=== PATIENT | male | born 1950 | race Caucasian/White ===

== ENCOUNTER 2020-04-14 09:09 | Outpatient (REF) | payer MEDICARE, OTHER, SELFPAY ==
[2020-04-14 10:17] LABS: Estimated Average Glucose 114 mg/dL; Hemoglobin A1c % 5.6 %
[2020-04-14 10:36] LABS: Alanine Aminotransferase 18 U/L (0-40); Anion Gap 12 (12-20); Blood Urea Nitrogen 20 mg/dL (9-16); Carbon Dioxide 27 mmol/L (22-29); Chloride 108 mmol/L (96-108); Cholesterol 158 mg/dL; Estimated Glomerular Filt Rate > 60; Glucose Fasting 110 mg/dL (60-99); HDL Cholesterol 41 mg/dL; LDL Cholesterol Calculated 103 mg/dl; Potassium 4.4 mmol/L (3.3-5.1); Sodium 143 mmol/L (135-145); Triglycerides 71 mg/dL
== END 2020-04-14 09:10 | disposition home or self-care (01) ==
LOC: HO.10HDL 09:09
PROVIDERS: Visit Provider Family Medicine
DX: I10 Essential (primary) hypertension (principal); E11.9 Type 2 diabetes mellitus without complications; E78.00 Pure hypercholesterolemia, unspecified; Z79.899 Other long term (current) drug therapy
CPT/HCPCS: 36415; 80051; 80061; 82550; 82565; 82947; 83036; 84460; 84520

== ENCOUNTER 2020-10-18 09:11 | Outpatient (REF) | payer MEDICARE, OTHER, SELFPAY ==
[2020-10-18 11:19] LABS: Anion Gap 10 (12-20); Blood Urea Nitrogen 22 mg/dL (9-16); Carbon Dioxide 24 mmol/L (22-29); Chloride 110 mmol/L (96-108); Estimated Glomerular Filt Rate > 60; Glucose Fasting 115 mg/dL (60-99); Potassium 4.2 mmol/L (3.3-5.1); Sodium 140 mmol/L (135-145)
[2020-10-18 11:29] LABS: Estimated Average Glucose 111 mg/dL; Hemoglobin A1c % 5.5 %
== END 2020-10-18 09:12 | disposition home or self-care (01) ==
LOC: HO.10HDL 09:11
PROVIDERS: Visit Provider Family Medicine
DX: I10 Essential (primary) hypertension (principal); E11.9 Type 2 diabetes mellitus without complications
CPT/HCPCS: 36415; 80051; 82043; 82565; 82947; 83036; 84520

== ENCOUNTER 2021-06-12 07:56 | Outpatient (REF) | payer MEDICARE, OTHER, SELFPAY ==
--- NOTE | ~2021-06-12 | XR_ITS ---
EXAMINATION: XR CHEST CLINICAL INFORMATION: Weight loss, diabetes, hypertension COMPARISON: Chest CT 09/21/2019, chest radiograph 01/24/2012 TECHNIQUE: 2 views of the chest were obtained. FINDINGS: There may be trace atelectasis at the lateral aspect of the left lower lung zone. Otherwise there is no significant abnormality is noted involving the heart, lungs, mediastinum, bony thorax or soft tissues. XR/XR chest 2V IMPRESSION: Question minimal left basilar atelectasis, otherwise unremarkable radiographs of the chest.
[2021-06-12 08:20] LABS: MANUAL DIFF FLAG NO
[2021-06-12 08:47] LABS: Basophils Percent Auto 0.4 % (0-2); Eosinophils Absolute Auto 0.1 X10*3/uL (0.0-0.4); Eosinophils Percent Auto 2.3 % (0-4); Hematocrit 41.6 % (42.0-52.0); Hemoglobin 14.1 g/dl (14.0-18.0); Imm Gran Abs Auto 0.01 X10*3/uL (0.00-0.03); Imm Gran Pct Auto 0.2 % (0.0-0.4); Lymphocytes Absolute Auto 1.6 X10*3/uL (1.2-4.9); Lymphocytes Percent Auto 34.1 % (20-40); Mean Corpuscular HGB Conc 33.9 g/dl (31.0-36.0); Mean Corpuscular Hemoglobin 30.3 pg (27.0-33.0); Mean Corpuscular Volume 89.3 fL (80.0-98.0); Mean Platelet Volume 10.3 fL (9.4-12.4); Monocytes Absolute Auto 0.4 X10*3/uL (0.1-1.2); Monocytes Percent Auto 8.3 % (2-11); Neutrophils Absolute Auto 2.6 x10*3/uL (2.0-8.3); Neutrophils Percent Auto 54.7 % (45-73); Platelet Count 203 X10*3/uL (160-400); Red Blood Count 4.66 X10*6/uL (4.60-5.80); Red Cell Distribution Width 12.1 % (11.0-16.0); White Blood Count 4.8 X10*3/uL (4.8-10.8)
[2021-06-12 09:09] LABS: Estimated Average Glucose 117 mg/dL; Hemoglobin A1c % 5.7 %
[2021-06-12 09:18] LABS: Alanine Aminotransferase 20 U/L (0-40); Albumin Level 4.2 g/dL (3.5-5.0); Alkaline Phosphatase 54 U/L (39-117); Anion Gap 9 (12-20); Aspartate Amino Transferase 24 U/L (5-37); Bilirubin Total 0.4 mg/dL (0.0-1.0); Blood Urea Nitrogen 21 mg/dL (9-16); Calcium 9.6 mg/dL (8.4-10.2); Carbon Dioxide 30 mmol/L (22-29); Chloride 106 mmol/L (96-108); Estimated Glomerular Filt Rate > 60; Glucose Fasting 124 mg/dL (60-99); Potassium 4.7 mmol/L (3.3-5.1); Sodium 140 mmol/L (135-145); Total Protein 6.7 g/dL (6.5-8.0)
[2021-06-12 09:46] LABS: Erythrocyte Sedimentation Rate 5 MM/HR (0-15)
== END 2021-06-12 07:57 | disposition home or self-care (01) ==
LOC: HO.XRAY 07:56
PROVIDERS: PCP Family Medicine; Visit Provider Family Medicine
DX: E11.9 Type 2 diabetes mellitus without complications (principal); I10 Essential (primary) hypertension; R63.4 Abnormal weight loss
CPT/HCPCS: 36415; 71046; 80053; 83036; 85025; 85652

== ENCOUNTER 2021-07-21 07:34 | Outpatient (REF) | payer MEDICARE, OTHER, SELFPAY ==
[2021-07-21 08:28] LABS: Blood Urea Nitrogen 22 mg/dL (9-16); Estimated Glomerular Filt Rate > 60
== END 2021-07-21 07:35 | disposition home or self-care (01) ==
LOC: HO.LAB 07:34
PROVIDERS: PCP Family Medicine; Visit Provider Family Medicine
DX: Z01.818 Encounter for other preprocedural examination (principal); I10 Essential (primary) hypertension
CPT/HCPCS: 36415; 82565; 84520

== ENCOUNTER 2021-11-22 13:04 | Outpatient (REF) | payer MEDICARE, SELFPAY ==
--- NOTE | 2021-11-22 09:00 | EMG_ITS ---
Right tibial and peroneal motor studies were performed. Right superficial peroneal and sural sensory studies were performed. Tibial H-reflex was obtained and needle examination was done. 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 MD JAYSHREE Velazquez/JERAMIE / [id number]
== END 2021-11-22 13:05 | disposition home or self-care (01) ==
LOC: HO.NEURO 13:04
PROVIDERS: Visit Provider Family Medicine
DX: M21.371 Foot drop, right foot (principal)
CPT/HCPCS: 95886; 95909

== ENCOUNTER 2022-02-19 07:58 | Outpatient (REF) | payer MEDICARE, OTHER, SELFPAY ==
[2022-02-19 08:44] LABS: Estimated Average Glucose 114 mg/dL; Hemoglobin A1c % 5.6 %
[2022-02-19 09:00] LABS: Creatinine Urine 202.51 mg/dL; Microalbum/Creatinine Ratio Ur 3.9 ug/mg cr
[2022-02-19 09:03] LABS: Alanine Aminotransferase 15 U/L (0-40); Albumin Level 4.3 g/dL (3.5-5.0); Alkaline Phosphatase 49 U/L (39-117); Anion Gap 13 (12-20); Aspartate Amino Transferase 20 U/L (5-37); Bilirubin Total 0.4 mg/dL (0.0-1.0); Blood Urea Nitrogen 20 mg/dL (9-16); Calcium 9.3 mg/dL (8.4-10.2); Carbon Dioxide 26 mmol/L (22-29); Chloride 108 mmol/L (96-108); Estimated Glomerular Filt Rate > 60; Glucose Fasting 111 mg/dL (60-99); Potassium 4.4 mmol/L (3.3-5.1); Sodium 143 mmol/L (135-145); Total Protein 6.8 g/dL (6.5-8.0)
== END 2022-02-19 07:59 | disposition home or self-care (01) ==
LOC: HO.LAB 07:58
PROVIDERS: PCP Family Medicine; Visit Provider Family Medicine
DX: I10 Essential (primary) hypertension (principal); E11.9 Type 2 diabetes mellitus without complications; E78.00 Pure hypercholesterolemia, unspecified; Z79.899 Other long term (current) drug therapy
CPT/HCPCS: 36415; 80053; 82043; 83036

== ENCOUNTER 2022-08-16 06:44 | Outpatient (REF) | payer MEDICARE, OTHER, SELFPAY ==
[2022-08-16 07:42] LABS: Estimated Average Glucose 114 mg/dL; Hemoglobin A1c % 5.6 %
[2022-08-16 08:00] LABS: Anion Gap 11 (12-20); Blood Urea Nitrogen 26 mg/dL (9-16); Carbon Dioxide 27 mmol/L (22-29); Chloride 109 mmol/L (96-108); Cholesterol 169 mg/dL; Estimated Glomerular Filt Rate > 60; Glucose Fasting 123 mg/dL (60-99); HDL Cholesterol 59 mg/dL; LDL Cholesterol Calculated 101 mg/dl; Potassium 4.2 mmol/L (3.3-5.1); Sodium 143 mmol/L (135-145); Triglycerides 49 mg/dL
== END 2022-08-16 06:45 | disposition home or self-care (01) ==
LOC: HO.LAB 06:44
PROVIDERS: PCP Family Medicine; Visit Provider Family Medicine
DX: I10 Essential (primary) hypertension (principal); E78.00 Pure hypercholesterolemia, unspecified; R73.9 Hyperglycemia, unspecified
CPT/HCPCS: 36415; 80051; 80061; 82565; 82947; 83036; 84520

== ENCOUNTER 2022-09-19 07:19 | Outpatient (REF) | payer MEDICARE, SELFPAY ==
--- NOTE | ~2022-09-19 | CT_ITS ---
EXAMINATION: CT CHEST WITHOUT CONTRAST CLINICAL INFORMATION: Pulmonary nodule follow-up COMPARISON: Previous chest CT scans most recent July 2021 back to January 2016 TECHNIQUE: Multidetector volumetric CT imaging of the chest was done. Axial MIP volume rendering provided. Sagittal and coronal reformatted images were obtained. This CT examination was performed using dose optimization techniques as appropriate, variously including the following: *Automated exposure control *Adjustment of mA and/or kV according to patient size (this includes techniques or standardized protocols for targeted exams where dose is matched to indication/reason for exam; i.e. extremities or head) *Use of iterative reconstruction technique DLP: 284 mGy-cm FINDINGS: LUNGS: Biapical pleural and parenchymal scarring. Able 5 mm calcified right middle lobe nodule axial image 333 series 5. Stable 2 mm calcified left lower lobe nodule axial image 308 series 5. Stable scarring or chronic subsegmental atelectasis in the left lower lobe axial image 494 series 5. No new pulmonary nodule. MEDIASTINUM: Upper normal heart size. No pericardial effusion. Normal caliber thoracic aorta. Calcified mediastinal and right hilar lymph nodes similar to previous exams. Small subcentimeter left thyroid nodule similar to prior exams. No imaging follow-up recommended. CORONARY ARTERY CALCIFICATION: Moderate PLEURA: There is no pleural effusion. No pleural mass or thickening. Left posterior small diaphragmatic hernia containing fat. AXILLA: No lymphadenopathy. UPPER ABDOMEN: Unremarkable. OSSEOUS STRUCTURES: Degenerative changes of the spine. Stable small sclerotic densities in T1 and L1. CT/CT chest wo IV con IMPRESSION: Stable chest CT exam. Evidence of old granulomatous disease. Pulmonary nodules are unchanged going back to oldest available 2016 exam. According to Fleischner criteria, no chest CT follow-up recommended. Fleischner guidelines were followed.
== END 2022-09-19 07:20 | disposition home or self-care (01) ==
LOC: HO.CT 07:19
PROVIDERS: Visit Provider Family Medicine
DX: R06.02 Shortness of breath (principal); R91.1 Solitary pulmonary nodule
CPT/HCPCS: 71250

== ENCOUNTER 2023-02-07 08:27 | Outpatient (REF) | payer MEDICARE, OTHER, SELFPAY ==
[2023-02-07 08:59] LABS: Estimated Average Glucose 120 mg/dL; Hemoglobin A1c % 5.8 % (<6.0)
[2023-02-07 09:30] LABS: Alanine Aminotransferase 13 U/L (0-40); Anion Gap 11 (12-20); Aspartate Amino Transferase 15 U/L (5-37); Blood Urea Nitrogen 19 mg/dL (9-16); Carbon Dioxide 28 mmol/L (22-29); Chloride 108 mmol/L (96-108); Estimated Glomerular Filt Rate > 60; Glucose Fasting 115 mg/dL (60-99); Potassium 3.8 mmol/L (3.3-5.1); Sodium 143 mmol/L (135-145)
== END 2023-02-07 08:28 | disposition home or self-care (01) ==
LOC: HO.LAB 08:27
PROVIDERS: PCP Family Medicine; Visit Provider Family Medicine
DX: I10 Essential (primary) hypertension (principal); E11.9 Type 2 diabetes mellitus without complications; E78.00 Pure hypercholesterolemia, unspecified; Z79.899 Other long term (current) drug therapy
CPT/HCPCS: 36415; 80051; 82565; 82947; 83036; 84450; 84460; 84520

== ENCOUNTER 2023-07-18 07:28 | Outpatient (REF) | payer MEDICARE, OTHER, SELFPAY ==
[2023-07-18 08:20] LABS: Estimated Average Glucose 123 mg/dL; Hemoglobin A1c % 5.9 % (<6.0)
[2023-07-18 08:27] LABS: Alanine Aminotransferase 16 U/L (0-40); Anion Gap 12 (12-20); Aspartate Amino Transferase 19 U/L (5-37); Blood Urea Nitrogen 20 mg/dL (9-16); Carbon Dioxide 25 mmol/L (22-29); Chloride 111 mmol/L (96-108); Estimated Glomerular Filt Rate > 60; Glucose Fasting 115 mg/dL (60-99); Potassium 4.3 mmol/L (3.3-5.1); Sodium 144 mmol/L (135-145)
== END 2023-07-18 07:29 | disposition home or self-care (01) ==
LOC: HO.LAB 07:28
PROVIDERS: PCP Family Medicine; Visit Provider Family Medicine
DX: I10 Essential (primary) hypertension (principal); E11.9 Type 2 diabetes mellitus without complications; E78.00 Pure hypercholesterolemia, unspecified
CPT/HCPCS: 36415; 80051; 82550; 82565; 82947; 83036; 84450; 84460; 84520

== ENCOUNTER 2024-01-13 08:02 | Outpatient (REF) | payer MEDICARE, OTHER, SELFPAY ==
[2024-01-13 09:06] LABS: Estimated Average Glucose 114 mg/dL; Hemoglobin A1C 127.0781 umol/L; Hemoglobin A1c % 5.6 % (<6.0); Total Hemoglobin (HGBA1C) 3384.3216 umol/L
[2024-01-13 09:48] LABS: Alanine Aminotransferase 19 U/L (0-40); Anion Gap 8 (12-20); Aspartate Amino Transferase 21 U/L (5-37); Blood Urea Nitrogen 15 mg/dL (9-16); Carbon Dioxide 28 mmol/L (22-29); Chloride 107 mmol/L (96-108); Estimated Glomerular Filt Rate > 60; Glucose Fasting 116 mg/dL (60-99); Potassium 4.1 mmol/L (3.3-5.1); Sodium 139 mmol/L (135-145)
== END 2024-01-13 08:03 | disposition home or self-care (01) ==
LOC: HO.LAB 08:02
PROVIDERS: PCP Family Medicine; Visit Provider Family Medicine
DX: I10 Essential (primary) hypertension (principal); E78.00 Pure hypercholesterolemia, unspecified; Z79.899 Other long term (current) drug therapy; R73.09 Other abnormal glucose
CPT/HCPCS: 36415; 80051; 82550; 82565; 82947; 83036; 84450; 84460; 84520

== ENCOUNTER 2024-06-10 07:25 | Outpatient (REF) | payer MEDICARE, OTHER, SELFPAY ==
[2024-06-10 08:38] LABS: Alanine Aminotransferase 34 U/L (0-40); Anion Gap 13 (12-20); Aspartate Amino Transferase 50 U/L (5-37); Blood Urea Nitrogen 23 mg/dL (9-16); Carbon Dioxide 27 mmol/L (22-29); Chloride 107 mmol/L (96-108); Estimated Glomerular Filt Rate > 60; Potassium 4.5 mmol/L (3.3-5.1); Sodium 142 mmol/L (135-145)
== END 2024-06-10 07:26 | disposition home or self-care (01) ==
LOC: HO.LAB 07:25
PROVIDERS: PCP Family Medicine; Visit Provider Family Medicine
DX: I10 Essential (primary) hypertension (principal); E78.00 Pure hypercholesterolemia, unspecified
CPT/HCPCS: 36415; 80051; 82550; 82565; 84450; 84460; 84520

== ENCOUNTER 2024-06-21 07:28 | Outpatient (REF) | payer MEDICARE, OTHER, SELFPAY ==
--- OUTSIDE RECORDS SUMMARY | 2024-06-21 07:33 | XMS_ITS | Patient Health Record ---
Author Organization [facility] Dennis Bolañosley Address [address] [facility] [place] [address] Care Team Providers Care Manager Administrative Services Name Role Phone Walter GERMAN, Madan Primary Care Provider Sari Man Unavailable [phone] Allergies No Known Allergies Reason For Referral No Information Medications Medication SIG (Take, Route, Frequency, Duration) Notes Start Date End Date Status Lisinopril 5 MG 1 tablet Orally Once a day Active Aspirin Adult Low Dose 81 MG Orally Active Crestor 10 MG Orally Active Physical Therapy . . . 2-3x/week for 3- 4 weeks 08/17/2021 Active Social History Tobacco Use: Social History Observation Description Date Details (start date - stop date) Current Smoker NA - NA Tobacco Use/Smoking Question Answer Notes Are you a: current smoker Tobacco use other than smoking: Question Answer Notes Are you an other tobacco user? No Problems No Known Problems Plan Of Treatment No Information Insurance Providers Payer Name Payer Address Payer Phone Subscriber Number Group Number Insured Name Patient Relationship to Insured Coverage Start Date Coverage End Date Medicare National Govt Svcs Inc [address] [place] [address] [id number] Ifeanyi Kovacs Self - patient is the insured [employer] health & benefit plan [address] [place] [address] [place] [address] [phone] [id number] Ifeanyi Kovacs Self - patient is the insured Medical (General) History Medical History History ICD Code Broken bones Joint implants/screws Surgical History Surgery Date(Month/Year) ankle surgery 1994 cyst removal left eye
== END 2024-06-21 07:29 | disposition home or self-care (01) ==
LOC: HO.LAB 07:28
PROVIDERS: PCP Family Medicine; Visit Provider Family Medicine
DX: E78.00 Pure hypercholesterolemia, unspecified (principal)
CPT/HCPCS: 36415; 82550

== ENCOUNTER 2024-07-16 10:06 | Outpatient (REF) | payer MEDICARE, OTHER, SELFPAY ==
--- OUTSIDE RECORDS SUMMARY | 2024-07-16 10:40 | XMS_ITS | Clinical Summary ---
Author Organization [facility] Address [address] [place] [address] Care Team Providers Care Supervisor Hot Dip Plating Name Role Phone Unavailable Primary Care Provider Unavailabl e Social History Tobacco Use Types Packs/Day Years Used Date Smoking Tobacco: Never Assessed Sex and Gender Information Value Date Recorded Sex Assigned at Not on file Legal Sex Male 3:54 AM EST Gender Identity Not on file Sexual Orientation Not on file Plan of Treatment Not on file
[2024-07-16 14:10] LABS: Appearance Urine Clear; Color Urine Yellow; Glucose Urine UA Negative (Negative); Leukocyte Esterase Urine Trace (Negative); Nitrite Urine Negative (Negative); UMIC TRIGGER UACC YES; Urine Blood Negative (Negative); Urine Ketones Negative (Negative); Urine Protein Negative (Neg-Trace)
[2024-07-16 14:15] LABS: Bacteria Urine None Seen (None Seen); Hyaline Casts Urine 0-2 /LPF (0-2); RBC Urine 0-2 /HPF (0-2); Squamous Epithelial Cell Urine 0-2 /HPF (0-2); UACC Culture Trigger YES
== END 2024-07-16 10:07 | disposition home or self-care (01) ==
LOC: HO.10HDLNP 10:06
PROVIDERS: Visit Provider Family Medicine
DX: R30.0 Dysuria (principal)
CPT/HCPCS: 81001; 87086

== ENCOUNTER 2024-11-10 08:48 | Outpatient (AMB) | payer MEDICARE, OTHER, SELFPAY ==
--- NOTE | 2024-11-10 08:27 | MHC.PC.OV ---
Vital Signs 11/10/24 08:52 Height 5 ft 11 in Weight 208 lb BMI 29.0 BP 130/80 Blood Pressure Location Rt brachial Position Sitting Pulse 71 Pulse Source Pulse Oximeter Temp 97.6 F Temp Source Temporal Artery Scan Pulse Oximetry (%) 98 Oxygen Delivery Method Room Air Intake Visit Reasons: 4 MO F/UP - ZOE PT Reactor Service Operator Required: No Accompanied by: Self / Same As Patient Allergies No Known Allergies (No Known Allergies*) Allergy (Verified 11/10/24 08:28) Tobacco use date assessed: 11/10/24 Fall risk assessment: No Falls in past year Last assessed Fall Risk: 11/10/24 Dental Screening Dental Screen Date: 11/10/24 Did you have a dental visit in the last 12 months?: Yes Did you have a dental problem in the last 6 months where you did not have access to dental care?: No HPI HPI Comments History of Present Illness Details The patient is a 74-year-old male presenting with knee pain. He describes the onset of pain approximately two months ago and expresses concerns about arthritis. The patient notes a previous history of a foot graft from years ago. He also reports periodic numbness in the lower leg, which he understands may be due to nerve compression in the back. Knee pain intensifies upon kneeling and is sometimes associated with a sensation of the knee giving way. However, the patient denies any swelling, locking of the knee, or constant pain. He has reduced his walking activities from an hour per day due to discomfort, but remains capable of walking. The pain alleviates upon rest, and he does not report any significant improvement with past interventions. There is a history of steroid injections in the arm for a different issue, which resolved successfully. Medical History: - Essential Hypertension - Hyperlipidemia Surgical History: - Four screws placed in the left ankle due to a baseball injury approximately 20 years ago. Family History: - Father from stomach cancer. - [id number] recently at age 90. Social: - Tobacco use: Approximately 25 years of smoking, now reduced to a pack a week. - Alcohol use: Past use ceased due to headaches after consumption. - Exercises including walking, with reduced activity due to knee pain. [facility] Medical History (Updated 11/10/24 @ 09:29 by Alfonso Skaggs MD) Tobacco use disorder Knee pain Hyperlipidemia Hypertension Family History (Updated 11/10/24 @ 08:57 by Kati Suazo MA) Mother No problems noted. Father No problems noted. Social History Housing: House Patient Tobacco Use Status: Current everyday Tobacco user e-Cigarette/Vaping Use: Currently Using service: No Current occupational status: retired Cognitive needs: No Hearing needs: No Vision needs: Yes (rx glasses) Questionnaire PHQ-9 Over the last 2 weeks, how often have you been bothered by any of the following problems? 1. Little interest or pleasure in doing things: not at all 2. Feeling down, depressed, or hopeless: not at all 3. Trouble falling or staying asleep, or sleeping too much: not at all 4. Feeling tired or having little energy: not at all 5. Poor appetite or overeating: not at all 6. Feeling bad about yourself - or that you are a failure or have let yourself or your family down: not at all 7. Trouble concentrating on things, such as reading the newspaper or watching television: not at all 8. Moving or speaking so slowly that other people could have noticed. Or the opposite - being so fidgety or restless that you have been moving around a lot more than usual: not at all 9. Thoughts that you would be better off or of hurting yourself in some way: not at all Total score: 0 Depression Screening Interpretation: Negative Depression Screening Done: Yes 57941 - PHQ-9 Billing: Yes Source: Developed by Drs. Chon Lozano, Kaitlin Dukes, Zac Huang and colleagues, with an educational freddy from [employer]. Thrive Questionnaire Date Thrive assessed: 11/10/24 I am a: Patient What is your living situation today?: I have a steady place to live Within the past 12 months, did the food you bought not last and you didn't have the money to get more?: Never true Within the past 12 months, did you worry whether your food would run out before you got money to buy more?: Never true Do you have trouble paying for medicines?: No Do you have trouble getting transportation to medical appointments?: No Do you have trouble paying your heating and electricity bill?: No Do you have trouble taking care of your child, family member or friend?: No Do you have trouble with day-to-day activities such as bathing, preparing meals, shopping, managing finances, etc.?: No Are you currently unemployed and looking for a job?: No Are you interested in more education?: No THRIVE Score: 0 AUDIT C Alcohol Use Questionnaire (AUDIT-C) 1. How often do you have a drink containing alcohol?: Never 3. How often do you have six or more drinks on one occasion?: Never Total Score: 0 Score Reviewed/Action Taken: Yes CHADD-7 AMB Questionnaire CHADD-7 Date CHADD - 7 assessed: 11/10/24 Feeling nervous, anxious, or on edge: 0 = Not at all Not being able to stop or control worryin = Not at all Worrying too much about different things: 0 = Not at all Trouble relaxin = Not at all Being so restless that it is hard to sit still: 0 = Not at all Becoming easily annoyed or irritable: 0 = Not at all Feeling afraid as if something awful might happen: 0 = Not at all Total CHADD-7 score (0-4 normal; 5-9 mild; 10-14 moderate; 15-21 severe): 0 Source: Developed by Drs. Chon Lozano, Kaitlin Dukes, Zac Huang and colleagues, with an educational freddy from [employer]. CHADD-7 Assessment Billing CHADD-7 Assessment Tool: CHADD-7 Assessment 72751 Review of Systems Const Details: - Musculoskeletal: Reports knee pain that worsens with kneeling; denies swelling or locking - Neurological: Reports occasional numbness in the lower leg - Cardiovascular: Denies chest pain, fluttering - Gastrointestinal: Denies nausea, vomiting, diarrhea, constipation - Genitourinary: Denies any issues with urination - Respiratory: Denies shortness of breath - Psychiatric: Denies anxiety or depression All systems reviewed & are unremarkable except as reviewed in HPI and above Physical exam (Primary Care) Vital Signs: Last Vital Signs Temp 97.6 F 11/10/24 08:52 Pulse 71 11/10/24 08:52 BP 130/80 11/10/24 08:52 Pulse Ox 98 11/10/24 08:52 Oxygen Delivery Method Room Air 11/10/24 08:52 BMI result Body Mass Index 29.0 Tobacco/Smoking Status: Tobacco use Status Tobacco use date assessed 11/10/24 11/10/24 08:29 Patient Tobacco Use Status Current everyday Tobacco 11/10/24 08:57 e-Cigarette/Vaping Use Currently Using 11/10/24 08:57 PHQ-9: PHQ-9 Score PHQ-9: Total score 0 11/10/24 09:05 Depression Screening Interpretation: Negative Thrive Assessment: Date of Thrive Assessment Date Thrive assessed 11/10/24 11/10/24 08:29 Const Other: General: +Alert and oriented, Well nourished, No acute distress. Eye: Pupils are equal, round and reactive to light, Intact accommodation, Extraocular movements are intact, Normal conjunctiva, Vision unchanged. HENT: Normocephalic, Atraumatic, Tympanic membranes are clear, Normal hearing, Oral mucosa is moist, No pharyngeal erythema, Ear canals patent. Respiratory: Lungs CTA bilaterally, No wheeze, Respirations are non-labored. Cardiovascular: Regular rate, Regular rhythm, S1 auscultated, S2 auscultated, No murmur, Good pulses equal in all extremities, Normal peripheral perfusion, No edema. Gastrointestinal: Soft, Non-tender, Non-distended, Normal bowel sounds, No organomegaly. Musculoskeletal: Normal range of motion, Normal strength, No tenderness, No swelling, No deformity, Normal gait. Reports occasional numbness in the lower leg, knee pain when kneeling, and occasional giving way of the knee. Integumentary: Warm, Dry, [place], Intact. Neurologic: Alert, Oriented, Normal sensory, Normal motor function, No focal defects, Cranial Nerves II-XII are grossly intact, Normal deep tendon reflexes. Reports occasional hand tremors when tired. Psychiatric: Cooperative, Appropriate mood & affect, Normal judgment. No anxiety or depression reported. Coding Level of Care Code New Pt Level 4 (97177) Complex EM visit Add On G2211 Diagnoses Acute pain of right knee M25.561 Chronicity: acute Laterality: right Primary hypertension I10 Hypertension type: primary hypertension Other hyperlipidemia E78.49 Hyperlipidemia type: other hyperlipidemia Tobacco use disorder F17.200 Additional Codes CHADD-7 Assessment Billing - CHADD-7 Assessment Tool: CHADD-7 Assessment 15318 ([id number]) PHQ-9 - 18023 - PHQ-9 Billing: Yes ([id number]) Assessment & Plan Assessment & Plan (1) Knee pain: Comment: - Plan includes obtaining an X-ray to assess for potential arthritis. (Reports having pain in the knee and above and below, with occasional numbness) - Suggested maintaining activity within comfortability to manage arthritis. - Consideration of physical therapy or steroid injections in the knee if needed. - Continue low-impact exercise for arthritis management. Code(s): M25.569 - Pain in unspecified knee Category: Medical Qualifiers: Chronicity: acute Laterality: right Qualified Code(s): M25.561 - Pain in right knee (2) Hypertension: Comment: - Continued monitoring and management with current medical regimen. (Lisinopril 10) - Emphasized the importance of medication adherence and regular blood pressure checks. Code(s): I10 - Essential (primary) hypertension Category: Medical Qualifiers: Hypertension type: primary hypertension Qualified Code(s): I10 - Essential (primary) hypertension (3) Hyperlipidemia: Comment: - Remain on current management and monitor lipid levels regularly. - Discussed potential lifestyle modifications, including diet and activity levels. Code(s): E78.5 - Hyperlipidemia, unspecified Category: Medical Qualifiers: Hyperlipidemia type: other hyperlipidemia Qualified Code(s): E78.49 - Other hyperlipidemia (4) Tobacco use disorder: Comment: - Recommended referral for lung cancer screening (CT scan annually). - Encouraged cessation efforts due to longstanding history of use. Code(s): F17.200 - Nicotine dependence, unspecified, uncomplicated Category: Medical Plan: Health maintenance: - Lung cancer screening (annual CT) due to history of smoking. - Colonoscopy recommended as the last was approximately five to six years ago. Patient was informed and verbally consented to the use of an ambient scribe for clinic note documentation during this visit. Plan During the consultation, I discussed the likelihood of knee arthritis with the patient, supported by the symptomatology and age-related risk factors. I outlined the management options for arthritis, emphasizing activity, potential physical therapy, and the possible need for steroid injections. We agreed to pursue an X-ray for diagnostic assessment. I also covered hypertension and hyperlipidemia management, ensuring the patient understood the importance of medication adherence and lifestyle modifications. Additionally, I addressed the need for lung cancer screening due to smoking history and scheduled necessary preventive screenings like colonoscopy. Follow-up was generally agreed upon every six months or as required. Orders: Orders Lipid Panel Today Z76.89 - Persons encountering health services in other specified circumstances Complete Blood Count Auto Diff Today Z76.89 - Persons encountering health services in other specified circumstances Comprehensive Met. Panel Today Z76.89 - Persons encountering health services in other specified circumstances Hemoglobin A1c Today Z76.89 - Persons encountering health services in other specified circumstances TSH reflex Free T4 Today Z76.89 - Persons encountering health services in other specified circumstances Vitamin D 25-OH Total Today Z76.89 - Persons encountering health services in other specified circumstances XR knee RT 3V Today M25.561 - Pain in right knee Referrals Lung Cancer Screening Referral F17.200 - Nicotine dependence, unspecified, uncomplicated Open Access Screening Colonoscopy Referral Z12.11 - Encounter for screening for malignant neoplasm of colon Patient Instructions: - Get an X-ray of your knee to check for arthritis. - Keep moving and do low-impact exercises to help with arthritis. - Take your blood pressure and cholesterol medicines as prescribed. - Start screening for lung cancer since you have smoked. - Plan to have a colonoscopy done soon. - Stay active within comfort, but avoid activities that make knee pain worse. - Watch your diet and increase exercise for your blood pressure and cholesterol. - Attend your follow-up appointment in six months.
[2024-11-10 08:52] VITALS: BP 130/80; PULSE 71; TEMP 36.4; O2SAT 98; BMI 29.0
--- OUTSIDE RECORDS SUMMARY | 2024-11-10 10:03 | XMS_ITS | Clinical Summary ---
Author Organization [facility] Address [address] [place] [address] Care Team Providers Care Hot Roll Laminator Name Role Phone Unavailable Primary Care Provider [...]
--- OUTSIDE RECORDS SUMMARY | 2024-11-10 10:03 | XMS_ITS | Patient Health Record ---
Author Organization [facility] Dennis [place]cd[place] Address [address] [facility] [place] [address] Care Team Providers Care Rn Social Work Name Role Phone Walter GERMAN, Madan Primary Care Provider Sari Man Unavailable [phone] Allergies No Known Allergies Reason For Referral No Information Medications Medication SIG (Take, Route, Frequency, Duration) Notes Start Date End Date Status Lisinopril 5 MG 1 tablet Orally Once a day Active Aspirin Adult Low Dose 81 MG Orally Active Crestor 10 MG Orally Active Physical Therapy . . . 2-3x/week; Durat ion: 3-4 weeks 08/17/2021 Active Social History Tobacco Use: [...] Medicare National Govt Svcs Inc [address] [place] [address] [id number] Ifeanyi Kovacs Self - patient is the insured [employer] health & benefit plan [address] [place] [address] [place] [address] [phone] [id number] Ifeanyi Kovacs Self - patient is the insured Medical (General) History Medical History History ICD Code Broken bones Joint implants/screws Surgical History Surgery Date(Month/Year) ankle surgery 1994 cyst removal left eye
--- OUTSIDE RECORDS SUMMARY | 2024-11-10 10:03 | XMS_ITS | Patient Health Record ---
Author Organization [facility] Address [address] [place] [address] Care Team Providers Care Telecommunications Network Planner Name Role Phone Walter (RETIRED) Madan GERMAN Primary Care Provider Unavailable Chon Sexton Unavailable [phone] Reason For Referral No Information Medications Medication SIG (Take, Route, Frequency, Duration) Notes Start Date End Date Status Lisinopril 5 MG 1 tablet Orally Once a day Active Crestor 10 MG 1 tablet Orally Once a day Active Aspirin Adult Low Dose 81 MG 1 tablet Orally Once a day A ctive Problems Problem Type SNOMED Code ICD Code Onset Dates Problem Status W/U Status Risk Notes Problem [id number] Encounter for screening for malignant neoplasm of colon (Z12.11) Active confirmed Problem 18721329 Preprocedural examination (Z01.818) Active confirmed Problem 136935052 Aspirin long-ter m use (Z79.82) Active confirmed Plan Of Treatment Future Test Test Name Order Date COLONOSCOPY 12/08/2014 Insurance Providers Payer Name Payer Address Payer Phone Subscriber Number Group Number Insured Name Patient Relationship to Insured Coverage Start Date Coverage End Date [employer] [address] [facility] [place] [address] [id number] JEFF COLE Self - patient is the insured Medical (General) History Medical History History ICD Code HTN Hyperlipidemia Denies AK,DM,CVA,Lung disease,renal dise ase Surgical History Surgery Date(Month/Year) left ankle has two screws 20-25 years ag o
== END 2024-11-10 09:11 | disposition home or self-care (01) ==
LOC: HO.HMCHD 08:49
PROVIDERS: PCP Student in an Organized Health Care Education/Training Program; Visit Provider Student in an Organized Health Care Education/Training Program
DX: M25.561 Pain in right knee (principal); I10 Essential (primary) hypertension; E78.49 Other hyperlipidemia; F17.200 Nicotine dependence, unspecified, uncomplicated

== ENCOUNTER → 2024-11-10 08:48 | Outpatient (BNVA) | payer MEDICARE, OTHER, SELFPAY | PROVIDERS: PCP Family Medicine; Visit Provider Student in an Organized Health Care Education/Training Program | DX: M25.561 Pain in right knee (principal); I10 Essential (primary) hypertension; E78.49 Other hyperlipidemia; F17.200 Nicotine dependence, unspecified, uncomplicated; Z13.31 Encounter for screening for depression; Z13.39 Encounter for screening examination for other mental health and behavioral disorders | CPT/HCPCS: 96127; 99202 ==

== ENCOUNTER 2024-11-12 07:55 | Outpatient (REF) | payer MEDICARE, OTHER, SELFPAY ==
--- NOTE | ~2024-11-12 | XR_ITS ---
EXAMINATION: XR KNEE 3 VIEWS RIGHT HISTORY: M25.561 - Pain in right knee COMPARISON: There are no prior studies available for comparison. FINDINGS: Three views of the right knee are submitted. Osseous mineralization is normal. There is no fracture or dislocation. There is minimal patellar spurring. The soft tissues are unremarkable. There is no joint effusion. XR/XR knee RT 3V IMPRESSION: Minimal patellar spurring. Electronically signed by: Chon Mendoza MD 11/12/2024 08:52 AM EDT
--- OUTSIDE RECORDS SUMMARY | 2024-11-12 07:59 | XMS_ITS | Patient Health Record ---
Author Organization [facility] Dennis [place] Address [address] [facility] [place] [address] Care Team Providers Care Patient Account Analyst Name Role Phone Walter GERMAN, Madan Primary Care Provider Sari Man Unavailable [phone] Allergies No Known Allergies Reason For Referral [...] Medicare National Govt Svcs Inc [address] [place] [address] [id number] Ifeanyi Kovacs Self - patient is the insured [employer] health & benefit plan [address] [place] [address] [place] [address] [phone] [id number] Ifeanyi Kovacs Self - patient is the insured Medical (General) History Medical History History ICD Code Broken bones Joint implants/screws Surgical History Surgery Date(Month/Year) ankle surgery 1994 cyst removal left eye
--- OUTSIDE RECORDS SUMMARY | 2024-11-12 07:59 | XMS_ITS | Clinical Summary ---
Author Organization [facility] Address [address] [place] [address] Care Team Providers Care Newsroom Intern Name Role Phone Unavailable Primary Care Provider [...]
--- OUTSIDE RECORDS SUMMARY | 2024-11-12 07:59 | XMS_ITS | Patient Health Record ---
Author Organization [facility] Address [address] [place] [address] Care Team Providers Care Grip Wrapper Name Role Phone Walter (RETIRED) Madan GERMAN Primary Care Provider Unavailable Chon Sexton Unavailable [phone] Reason For Referral No Information Medications Medication [...] Problem Status W/U Status Risk Notes Problem [id number] Encounter for screening for malignant neoplasm of colon (Z12.11) Active confirmed Problem 21678846 Preprocedural examination (Z01.818) Active confirmed Problem 614361989 Aspirin long-ter m use (Z79.82) Active confirmed Plan Of Treatment Future Test Test Name Order Date COLONOSCOPY 12/08/2014 Insurance Providers Payer Name Payer Address Payer Phone Subscriber Number Group Number Insured Name Patient Relationship to Insured Coverage Start Date Coverage End Date [employer] [address] [place] [place] [address] [id number] JEFF COLE Self - patient is the insured Medical (General) History Medical History History ICD Code HTN Hyperlipidemia Denies [place],DM,CVA,Lung disease,renal dise ase Surgical History Surgery Date(Month/Year) left ankle has two screws 20-25 years ag o
[2024-11-12 08:18] LABS: MANUAL DIFF FLAG NO
[2024-11-12 09:56] LABS: Hematocrit 41.5 % (42.0-52.0); Hemoglobin 14.9 g/dl (14.0-18.0); Imm Gran Abs Auto 0.02 X10*3/uL (0.00-0.03); Imm Gran Pct Auto 0.3 % (0.0-0.4); Lymphocytes Absolute Auto 2.0 X10*3/uL (1.2-4.9); Mean Corpuscular HGB Conc 35.9 g/dl (31.0-36.0); Mean Corpuscular Hemoglobin 30.8 pg (27.0-33.0); Mean Corpuscular Volume 85.7 fL (80.0-98.0); NRBC Abs Auto 0.000 X10*3/uL (0.0-0.012); NRBC Pct Auto 0.0 /100WBC (0.0-0.2); Platelet Count 191 X10*3/uL (160-400); Red Blood Count 4.84 X10*6/uL (4.60-5.80); White Blood Count 6.4 X10*3/uL (4.8-10.8)
[2024-11-12 10:07] LABS: Hemoglobin A1C 158.6705 umol/L; Total Hemoglobin (HGBA1C) 3786.6804 umol/L
[2024-11-12 10:29] LABS: Alanine Aminotransferase 34 U/L (0-40); Albumin Level 4.6 g/dL (3.5-5.0); Alkaline Phosphatase 60 U/L (39-117); Anion Gap 10 (12-20); Aspartate Amino Transferase 23 U/L (5-37); Blood Urea Nitrogen 19 mg/dL (9-16); Calcium 9.3 mg/dL (8.4-10.2); Carbon Dioxide 29 mmol/L (22-29); Chloride 109 mmol/L (96-108); Cholesterol 190 mg/dL (<200); Estimated Glomerular Filt Rate > 60; HDL Cholesterol 40 mg/dL (>40); Potassium 4.4 mmol/L (3.3-5.1); Sodium 144 mmol/L (135-145); Total Protein 6.9 g/dL (6.5-8.0); Triglycerides 139 mg/dL (<150)
== END 2024-11-12 07:56 | disposition home or self-care (01) ==
LOC: HO.LAB 07:55
PROVIDERS: PCP Student in an Organized Health Care Education/Training Program; Visit Provider Student in an Organized Health Care Education/Training Program
DX: M25.561 Pain in right knee (principal); Z76.89 Persons encountering health services in other specified circumstances; Z13.6 Encounter for screening for cardiovascular disorders; Z13.1 Encounter for screening for diabetes mellitus; Z13.29 Encounter for screening for other suspected endocrine disorder; Z13.21 Encounter for screening for nutritional disorder
CPT/HCPCS: 36415; 73562; 80053; 80061; 82306; 83036; 84443; 85025

== ENCOUNTER → 2024-11-12 08:20 | Outpatient (BNV) | payer MEDICARE, OTHER, SELFPAY | PROVIDERS: PCP Student in an Organized Health Care Education/Training Program; Visit Provider Radiology Diagnostic Radiology | DX: M25.761 Osteophyte, right knee (principal) | CPT/HCPCS: 73562 ==

== ENCOUNTER 2024-12-08 07:40 | Day surgery (SDC) | payer MEDICARE, OTHER, SELFPAY ==
--- OUTSIDE RECORDS SUMMARY | 2024-11-15 13:26 | XMS_ITS | Patient Health Record ---
Author Organization [facility] [place] Address [address] [facility] [place] [address] Care Team Providers Care Food Service Name Role Phone Walter GERMAN, Maadn Primary Care Provider Sari Man Unavailable [phone] Allergies No Known Allergies Reason For Referral [...] Medicare National [employer] [address] [place] [address] [id number] Ifeanyi Kovacs Self - patient is the insured [email or web address] health & benefit plan [address] [place] [address] [place] [address] [id number] Ifeanyi Kovacs Self - patient is the insured Medical (General) History Medical History History ICD Code Broken bones Joint implants/screws Surgical History Surgery Date(Month/Year) ankle surgery 1994 cyst removal left eye
--- OUTSIDE RECORDS SUMMARY | 2024-11-15 13:26 | XMS_ITS | Patient Health Record ---
Author Organization [facility] Address [address] [place] [address] Care Team Providers Care Police Service Technician Name Role Phone Walter (RETIRED) Madan GERMAN Primary Care Provider Unavailable Chon Sexton Unavailable [phone] Reason For Referral No Information Medications Medication [...] Problem Status W/U Status Risk Notes Problem [id number] Encounter for screening for malignant neoplasm of colon (Z12.11) Active confirmed Problem [id number] Preprocedural examination (Z01.818) Active confirmed Problem 328801993 Aspirin long-ter m use (Z79.82) Active confirmed Plan Of Treatment Future Test Test Name Order Date COLONOSCOPY 12/08/2014 Insurance Providers Payer Name Payer Address Payer Phone Subscriber Number Group Number Insured Name Patient Relationship to Insured Coverage Start Date Coverage End Date [employer] [address] [facility] [place] [address] [phone] [id number] JEFF COLE Self - patient is the insured Medical (General) History Medical History History ICD Code HTN Hyperlipidemia Denies [place],DM,CVA,Lung disease,renal dise ase Surgical History Surgery Date(Month/Year) left ankle has two screws 20-25 years ag o
--- NOTE | 2024-12-06 12:20 | HO.ANESPROP2 ---
HPI - Anesthesia Eval Consult details Narrative: 74yo M for Colonoscopy PMFSH Active Problems Active Problems: All Active Problems Tobacco use disorder (Acute) Knee pain (Acute) Hyperlipidemia (Acute) Hypertension (Acute) Past Medical History Medical History (Updated 11/10/24 @ 09:29 by Alfonso Skaggs MD) Tobacco use disorder Knee pain Hyperlipidemia Hypertension Family History Family History (Updated 11/10/24 @ 08:57 by Kati Suazo MA) Mother No problems noted. Father No problems noted. Social History Social History Housing: House Patient Tobacco Use Status: Current everyday Tobacco user e-Cigarette/Vaping Use: Currently Using service: No Current occupational status: retired Cognitive needs: No Hearing needs: No Vision needs: Yes (rx glasses) Meds Allergies Allergy/AdvReac Type Severity Reaction Status Date / Time No Known Allergies (No Known Allergy Verified 11/10/24 08:28 Allergies*) Home Medications ?Medication ?Instructions ?Recorded ?Confirmed ?Last Taken ?Type lisinopril 5 mg tablet 5 mg PO DAILY 11/10/24 Unknown History rosuvastatin 10 mg tablet (Crestor) 10 mg PO DAILY 11/10/24 Unknown History Assessment and Plan Assessment Anesthesia Assessment: Chart Reviewed
[2024-12-08 08:29] VITALS: BP 134/73; PULSE 67; RESP 16; TEMP 36.4; O2SAT 97; BMI 28.0
[2024-12-08] MEDS: Lactated Ringers 1,000 ML 100 ML IVCONT (08:49)
--- NOTE | 2024-12-08 09:22 | MHC.SHP ---
Pre-Procedural Eval Section A - 24 Hr Update-Section A only Date of Service: 12/08/24 Section B - Complete if H&P > 30 days Chief Complaint: screening Relevant Family History (Specify if Yes): No Relevant Social History: Tobacco Use Present Medications: see Short Stay Collaborative assessment Medical History: Significant History (Tobacco use disorder Knee pain Hyperlipidemia Hypertension) History of Previous Operations: Relevant previous surgery/procedure and date(s) (colonoscopy) Allergies: Allergies Allergy/AdvReac Type Severity Reaction Status Date / Time No Known Allergies (No Known Allergy Verified 11/10/24 08:28 Allergies*) Review of Systems Sugical H&P ROS: Negative: Constitution, Cardiovascular, Respiratory, Neurological, Psychiatric, Hem-Onc, Allergic/Immunologic, Gastrointestinal, Genitourinary, Musculoskeletal, Integumentary, Endocrine and Eyes/Ears/Nose/Throat Exam Surgical H&P Exam: Normal: HEENT, Normal: Heart, Normal: Lungs, Normal: Extremities, Normal: Abdomen, Normal: Skin and Normal: Neurological Plan Diagnosis/Plan: Unchanged I have reviewed the history and physical and performed a pertinent physical examination on my patient. No changes have occurred unless specified. Time Spent With Patient Time: Total time managing care of this patient today ____ minutes.
--- NOTE | 2024-12-08 09:58 | HO.OPN-COLON ---
Colonoscopy Operative Note Operative Note Date of Service: 12/08/24 Narrative: Operative Information Procedure Description: Colonoscopy Indication: screening Anesthesia: MAC COLONOSCOPY Instrument: Olympus variable stiffness pediatric scope 190L Colonoscopy Monitoring: Vital signs and clinical assessment, continuous EKG monitoring, Pulse oximetry, Carbon Dioxide monitoring and blood pressure monitoring were done throughout the procedure. Colon withdrawal time was 14 minutes. Procedure: The patient was placed in the left lateral decubitis position and pre-procedure medications were administered. After a digital rectal examination of the ano-rectum, the video colonoscope was inserted into the rectum and advanced through the colon to the cecum/TI. The colonoscope was slowly withdrawn in a retrograde panoramic fashion and the colon mucosa was carefully examined including a retroflexed view of the rectum. Findings and interventions are described below. Procedure Difficulty: moderate, looping Findings: Terminal Ileum-normal Cecum:normal Ascending Colon: normal Transverse Colon -normal Descending Colon:normal Sigmoid Colon: mild diverticulosis, 8-9 mm sessile polyp removed with cold snare Rectum: Retroflexion with small internal hemorrhoids seen, grade I Anorectum - normal Intervention: cold snare Colon preparation: [place] Bowel Preparation Scale Right colon; 2 Transverse colon: 2 Left colon; 2 (0 = Unprepared colon segment with mucosa not seen due to solid stool that cannot be cleared. 1 = Portion of mucosa of the colon segment seen, but other areas of the colon segment not well seen due to staining, residual stool and/or opaque liquid. 2 = Minor amount of residual staining, small fragments of stool and/or opaque liquid, but mucosa of colon segment seen well. 3 = Entire mucosa of colon segment seen well with no residual staining, small fragments of stool or opaque liquid) Impression and Post Procedure Diagnosis: diverticulosis colon polyp x 1 internal hemorrhoids Plan: High fiber diet leaflet Avoid straining at stool, epsom salts and sitz bath, anusol supps or cream Repeat Colonoscopy in 5-7 years if adenoma, 10 yrs if hyperplastic and health allows or earlier if clinically indicated Above findings were reviewed with the patient and relevant handouts were provided if indicated.
[2024-12-08 10:05] VITALS: BP 96/58; PULSE 66; RESP 18; TEMP 36.1; O2SAT 98
[2024-12-08 10:20] VITALS: BP 116/78; PULSE 69; RESP 16; TEMP 36.1; O2SAT 97
== END 2024-12-08 10:45 | disposition home or self-care (01) ==
PROVIDERS: PCP Student in an Organized Health Care Education/Training Program; Visit Provider Internal Medicine Gastroenterology
PROC: 0DJD8ZZ Inspection of Lower Intestinal Tract, Via Natural or Artificial Opening Endoscopic (ICD-10-PCS; CPT 45378; principal; 2024-12-08 09:30)
DX: Z12.11 Encounter for screening for malignant neoplasm of colon (principal); D12.5 Benign neoplasm of sigmoid colon; K57.30 Diverticulosis of large intestine without perforation or abscess without bleeding; K64.0 First degree hemorrhoids
CPT/HCPCS: 45385; 88305; J2003; J2704

== ENCOUNTER → 2024-12-08 07:40 | Outpatient (BNV) | payer MEDICARE, OTHER, SELFPAY | PROVIDERS: PCP Student in an Organized Health Care Education/Training Program; Visit Provider Internal Medicine Gastroenterology | DX: Z12.11 Encounter for screening for malignant neoplasm of colon (principal); D12.5 Benign neoplasm of sigmoid colon; K57.30 Diverticulosis of large intestine without perforation or abscess without bleeding; K64.0 First degree hemorrhoids | CPT/HCPCS: 45385 ==